=== PATIENT | female | born 1960 | race Caucasian/White ===

== ENCOUNTER → 2022-10-12 | Outpatient (CLI) | payer MEDICAID ==
--- NOTE | 2022-10-12 17:29 | P.HPBAR ---
Bariatric H&P - History & Physicial H&P Date: 10/12/22 History & Physicial: Visit/CC: Patient initial contact: Initial weight: Initial weight in pounds: Height: 5 ft Initial BMI: Last weight: Current weight: 96.615 kg Current weight in pounds: Current BMI: [place] body weight (based on NIH guidelines): Excess body weight loss: The patient is a 62 year-old F who presents for Bariatric Assessment. She is looking into vental hernia surgery with loss of domain. Stop smoking. S leeve, labs and nutrition. Bariatric Checklist Checklist: Plan: Checklist: EGD: 1. Hiatal hernia: 2. H. Pylori: HgbA1c: Vitamin D: Smoking: Primary care physician referral: Psychiatry clearance: Cardiology clearance: Sleep study: Diet journal: VTE risk score: VTE risk level: Rehab needs at discharge:
[2022-10-12 17:40] VITALS: BP 118/79; PULSE 85; RESP 16; TEMP 98.1; BMI 41.5
== END ==
LOC: BARWHC3 16:32
PROVIDERS: ATTEND Surgery Plastic and Reconstructive Surgery
DX: E66.01 Morbid (severe) obesity due to excess calories (principal); Z68.41 Body mass index [BMI] 40.0-44.9, adult
CPT/HCPCS: 99202

== ENCOUNTER → 2022-10-18 | Outpatient (CLI) | payer MEDICAID ==
[2022-10-18 10:54] LABS: INR 0.9 (<1.2); Partial Thromboplastin Time 24.5 sec (22.0-30.0); Prothrombin Time 9.7 sec (9.0-12.0)
[2022-10-19 05:23] LABS: % Iron Saturation 20.88 (12.00-45.00); ALT 19 U/L (8-44); AST 18 U/L (13-35); Albumin 4.7 d/dL (3.8-4.9); Albumin/Globulin Ratio 1.62 Ratio (1.60-3.17); Alkaline Phosphatase 66 U/L (41-126); BUN/Creat Ratio 16.83 Ratio (12.00-20.00); Blood Urea Nitrogen 10.1 mg/dL (9.0-27.0); Calcium 10.4 mg/dL (8.7-10.3); Carbon Dioxide 25.5 mmol/L (21.6-31.8); Chloride 96 mmol/L (96-109); Chol/HDL Ratio 3.44 Ratio; Globulin 2.9 d/dL (1.6-3.3); Glucose 95 mg/dL (70-110); Iron 81 UG/DL (50-170); Magnesium 2.3 mg/dL (1.5-2.4); Phosphorus 3.8 mg/dL (2.4-5.1); Potassium 4.2 mmol/L (3.5-5.5); Prealbumin 27.5 mg/dL (18.0-42.0); Sodium 135 mmol/L (135-145); Total Bilirubin 0.3 mg/dL (0.3-1.2); Total Iron Binding Capacity 388 UG/DL (228-460); Total Protein 7.6 d/dL (6.2-8.2); Vitamin B12 >3600.0 pg/mL (200.0-944.0)
[2022-10-19 05:24] LABS: LDL Cholesterol,Calculated 72.4 mg/dL (0.0-131.0)
[2022-10-19 12:51] LABS: Zinc, Serum 73 ug/dL (60-130)
[2022-10-20 05:27] LABS: Vitamin A 66 ug/dL (38-106)
[2022-10-20 08:08] LABS: Anabasine Urine 4.7 ng/mL (<2.0)
[2022-10-20 10:14] LABS: Vit B1(Thiamine) 52 ug/L (38-122)
== END | disposition home or self-care (01) ==
LOC: LABPAT 08:59
PROVIDERS: ATTEND Surgery Plastic and Reconstructive Surgery
DX: Z71.51 Drug abuse counseling and surveillance of drug abuser (principal); E66.01 Morbid (severe) obesity due to excess calories; E89.1 Postprocedural hypoinsulinemia; D50.8 Other iron deficiency anemias; K91.2 Postsurgical malabsorption, not elsewhere classified; E44.0 Moderate protein-calorie malnutrition; E44.1 Mild protein-calorie malnutrition; E45 Retarded development following protein-calorie malnutrition; E55.9 Vitamin D deficiency, unspecified; K74.1 Hepatic sclerosis; N19 Unspecified kidney failure; T56.894A Toxic effect of other metals, undetermined, initial encounter; K50.90 Crohn's disease, unspecified, without complications; R94.31 Abnormal electrocardiogram [ECG] [EKG]
CPT/HCPCS: 80053; 80061; 80323; 82306; 82525; 82607; 82728; 82746; 83036; 83540; 83550; 83735; 83970; 84100; 84134; 84255; 84425; 84443; 84590; 84630; 85027; 85610; 85730; 93005

== ENCOUNTER → 2022-11-28 | Day surgery (SDC) | payer MEDICAID ==
[2022-11-21 17:02] VITALS: BMI 41.5
[~2022-11-28] MED LIST: LACTATED RINGERS 1,000 ML IV SCH; LIDOCAINE 1% (10MG/ML) FOR IV START INTRADERMA PRN; LIDOCAINE 2% INJ 20 MG/ML (2 ML VIAL) ONE; MIDAZOLAM 2 MG/2 ML VIAL ONE; PROPOFOL 10 MG/ML 20 ML VIAL IV ONE
[2022-11-28 08:01] VITALS: TEMP 97.5
--- NOTE | 2022-11-28 08:21 | P.GSHP ---
History of Present Illness H&P Date: 11/28/22 CHIEF COMPLAINT: GERD HISTORY OF PRESENT ILLNESS: The patient is a 62-year-old female who presents reports gastroesophageal reflux disease. Upper endoscopy was offered for further evaluation and management. PAST MEDICAL HISTORY: Please see list. PAST SURGICAL HISTORY: Please see list. MEDICATIONS: Please see list. ALLERGIES: Please see list. SOCIAL HISTORY: No illicit drug use FAMILY HISTORY: No reports of Crohn disease or ulcerative colitis. REVIEW OF ORGAN SYSTEMS: CONSTITUTIONAL: No reports of fevers or chills. GI: Denies any blood in stools or constipation. PHYSICAL EXAM: VITAL SIGNS: Stable GENERAL: Well-developed and pleasant in no acute distress. HEENT: No scleral icterus. Extraocular movements grossly intact. Moist buccal mucosa. NECK: Supple without lymphadenopathy. CHEST: Unlabored respirations. Equal bilateral excursions. CARDIOVASCULAR: Regular rate and rhythm. Distal 2+ pulses. ABDOMEN: Soft, nondistended. MUSCULOSKELETAL: No clubbing, cyanosis, or edema. ASSESSMENT: 1. Gastroesophageal reflux disease PLAN: 1. Recommend proceeding with an upper endoscopy Past Medical History Past Medical History: Hyperlipidemia, Hypertension, Sleep Apnea/CPAP/BIPAP Additional Past Medical History / Comment(s): CONSTIPATION, ABD. HERNIA, History of Any Multi-Drug Resistant Organisms: None Reported Past Surgical History: Breast Surgery, Hernia Repair, Tubal Ligation Additional Past Surgical History / Comment(s): COLONOSCOPY. LT BREAST BX. UTERINE BX Past Anesthesia/Blood Transfusion Reactions: Previous Problems w/ Anesthesia Additional Past Anesthesia/Blood Transfusion Reaction / Comment(s): WOKE UP DURING TUBAL LIGATION-. HERNIA SX-ENDED UP IN ICU-1993 Smoking Status: Current every day smoker - Past Family History Father Family Medical History: Cancer Brother(s) Family Medical History: Cancer Medications and Allergies Home Medications Medication Instructions Recorded Confirmed Type Atorvastatin [Lipitor] 20 mg PO DAILY 10/12/22 11/28/22 History lisinopriL [Zestril] 20 mg PO DAILY 10/12/22 11/28/22 History Ashwagandha Root Extract 300 mg PO DAILY 11/21/22 11/28/22 History [Ashwagandha] Cholecalciferol (Vitamin D3) 2,000 unit PO DAILY 11/21/22 11/28/22 History [Vitamin D3 (50 Mcg = 2000 Iu) Chew Tab] Cyanocobalamin (Vitamin B-12) 1,000 mcg PO DAILY 11/21/22 11/28/22 History [Vitamin B-12] Multivit with Calcium,Iron,Min 1 each PO DAILY 11/21/22 11/28/22 History [Women's Multivitamin] Budesonide-Formot 160-4.5 Mcg 160 mg .ROUTE BID PRN 11/28/22 11/28/22 History [Symbicort 160-4.5 Mcg Inhaler] Allergies Allergy/AdvReac Type Severity Reaction Status Date / Time acetaminophen [From Vicodin] AdvReac Nausea & Verified 11/28/22 07:46 Vomiting hydrocodone [From Vicodin] AdvReac Nausea & Verified 11/28/22 07:46 Vomiting Surgical - Exam Vital Signs Temp Pulse Resp BP Pulse Ox 97.5 F L 75 16 167/75 96 11/28/22 07:59 11/28/22 07:59 11/28/22 07:59 11/28/22 07:59 11/28/22 07:59
[2022-11-28 08:42] VITALS: RESP 20
[2022-11-28 08:57] VITALS: BP 118/77; PULSE 67
--- NOTE | 2022-11-28 09:07 | P.PCN ---
Date of Procedure: 11/28/22 Description of Procedure: PREOPERATIVE DIAGNOSIS: Gastroesophageal reflux disease. Morbid obesity. POSTOPERATIVE DIAGNOSIS: Gastroesophageal reflux disease. Morbid obesity. Gastritis. Diaphragmatic hiatal hernia OPERATION: Esophagogastroduodenoscopy with biopsies along antrum and duodenum SURGEON: Kimberley Ray MD ANESTHESIA: MAC. INDICATIONS: The patient is a 62-year-old female who presents with reflux disease. Benefits and risks of the procedure were described. Informed consent was obtained. DESCRIPTION: The patient was brought into the endoscopy suite and laid in the left lateral decubitus position. An Olympus gastroscope was passed along the posterior oropharynx down to the distal esophagus where the squamocolumnar junction was encountered at 36 cm from the incisors. The stomach was entered and no bile reflux was found. Additional findings are listed below. Biopsies with cold fo rceps were obtained of the antrum. The first through third portion of the duodenum was examined. Retroflexion of the scope confirmed Hill grade 2 lower esophageal valve. The squamocolumnar junction demonstrated LA grade B erosive esophagitis. The stomach was desufflated. The patient tolerated the procedure well. FINDINGS: Squamocolumnar junction 36 cm from the incisors. Diaphragmatic hiatus at 37 cm. Hiatal hernia, 1 cm Hill grade 2 lower esophageal valve. LA grade B erosive esophagitis. Biopsies obtained of the duodenum. Chronic gastritis with biopsies obtained. RECOMMENDATIONS: Upper endoscopy as needed. Plan - Discharge Summary Discharge Rx Participant: No New Discharge Prescriptions: Continue lisinopriL [Zestril] 20 mg PO DAILY Multivit with Calcium,Iron,Min [Women's Multivitamin] 1 each PO DAILY Cyanocobalamin (Vitamin B-12) [Vitamin B-12] 1,000 mcg PO DAILY Budesonide-Formot 160-4.5 Mcg [Symbicort 160-4.5 Mcg Inhaler] 160 mg .ROUTE BID PRN PRN Reason: Dyspnea Atorvastatin [Lipitor] 20 mg PO DAILY Cholecalciferol (Vitamin D3) [Vitamin D3 (50 Mcg = 2000 Iu) Chew Tab] 2,000 unit PO DAILY Discontinued Ashwagandha Root Extract [Ashwagandha] 300 mg PO DAILY Discharge Medication List Atorvastatin [Lipitor] 20 mg PO DAILY 10/12/22 [History] lisinopriL [Zestril] 20 mg PO DAILY 10/12/22 [History] Cholecalciferol (Vitamin D3) [Vitamin D3 (50 Mcg = 2000 Iu) Chew Tab] 2,000 unit PO DAILY 11/21/22 [History] Cyanocobalamin (Vitamin B-12) [Vitamin B-12] 1,000 mcg PO DAILY 11/21/22 [History] Multivit with Calcium,Iron,Min [Women's Multivitamin] 1 each PO DAILY 11/21/22 [History] Budesonide-Formot 160-4.5 Mcg [Symbicort 160-4.5 Mcg Inhaler] 160 mg .ROUTE BID PRN 11/28/22 [History] [facility] [place] [facility] Patient Instructions/Handouts: GERD (Gastroesophageal Reflux Disease) (DC) Discharge Disposition: HOME SELF-CARE
== END | disposition home or self-care (01) ==
LOC: ORWHC2ENDO 07:32
PROVIDERS: ATTEND Surgery Plastic and Reconstructive Surgery
DX: K29.50 Unspecified chronic gastritis without bleeding (principal); K21.00 Gastro-esophageal reflux disease with esophagitis, without bleeding; E66.01 Morbid (severe) obesity due to excess calories; K44.9 Diaphragmatic hernia without obstruction or gangrene; I10 Essential (primary) hypertension; E78.5 Hyperlipidemia, unspecified; G47.33 Obstructive sleep apnea (adult) (pediatric); F17.200 Nicotine dependence, unspecified, uncomplicated; Z79.899 Other long term (current) drug therapy; Z88.6 Allergy status to analgesic agent
CPT/HCPCS: 43239; 88305; J2250; J2704; J2001

== ENCOUNTER → 2022-12-14 | Outpatient (CLI) | payer MEDICAID ==
[2022-12-14 13:08] VITALS: BP 138/81; PULSE 84; TEMP 98.1; BMI 41.3
--- NOTE | 2022-12-14 13:45 | P.BASOAP ---
Subjective Progress Note Date: 12/14/22 She comes in with very large abdominal hernia with past bowel obstruction. She has no CT of the abdomen for her abdominal pain is generalized. She has difficulty reducing her hernia. She is requiring weight loss surgery but needs CT access for feasible for bariatric surgery. SHe reports change in bowel hab its. Colonoscopy was done at [facility] before 2019 in 2018. She has loss of domain with large. She has diverticulosis. EGD reviewed. EKG reviewed and abnormal. She rerquires cardiac clearance. Objective - Vital Signs Vital signs: Vital Signs Temp 98.1 F 12/14/22 13:02 Pulse 84 12/14/22 13:02 Resp BP 138/81 12/14/22 13:02 Pulse Ox FiO2 Intake & Output 12/13/22 12/14/22 12/14/22 18:59 06:59 18:59 Weight 96.162 kg Assessment/Plan Plan: Date: 12/14/22 Initial Weight: 96.615 kg Initial BMI: 41.5 Current Weight: 96.162 kg Current BMI: 41.3 Type of Surgery: Total Volume in Band: Previous Volume: Volume Removed: Volume Added: Band Size:
== END ==
LOC: BARWHC3 12:40
PROVIDERS: ATTEND Surgery Plastic and Reconstructive Surgery
DX: Z53.9 Procedure and treatment not carried out, unspecified reason (principal)
CPT/HCPCS: 99211

== ENCOUNTER → 2022-12-20 | Outpatient (CLI) | payer MEDICAID ==
[2022-12-20 08:12] LABS: African American GFR (CKD) >90 (>60 ml/min/1.73 sqM); Blood Urea Nitrogen 13 mg/dL (7-17); Non-African American GFR(CKD) >90 (>60 ml/min/1.73 sqM)
--- NOTE | 2022-12-20 09:45 | CT ---
EXAMINATION TYPE: CT abdomen pelvis w con CT DLP: 3.4 mGycm, Automated exposure control for dose reduction was used. DATE OF EXAM: 12/20/2022 9:28 AM COMPARISON: None CLINICAL INDICATION:Female, 62 years old with history of K56.609 INTEST OBSTRUCTION; ABD PAIN TECHNIQUE: Standard CT of the abdomen and pelvis following the administration of 100 cc of Isovue 3 00 IV contrast material and oral contrast. Coronal and sagittal reformats were performed. FINDINGS: LOWER CHEST: Linear scarring and/or atelectasis within the left lower lobe. ABDOMEN LIVER: Couple of small cysts identified. GALLBLADDER AND BILE DUCTS: Unremarkable. PANCREAS: Unremarkable. SPLEEN: Unremarkable. ADRENAL GLANDS: Unremarkable. KIDNEYS AND URETERS: No evidence of hydronephrosis or renal calculus. The kidneys enhance symmetrical ly. Contrast is demonstrated within both collecting systems on the delayed phase. PELVIS BLADDER: Unremarkable REPRODUCTIVE: Bilateral tubal ligation clips. ABDOMEN & PELVIS STOMACH AND BOWEL: Stomach and duodenum are unremarkable. Distal colonic diverticulosis without evide nce for acute diverticulitis. Enteric contrast reaches the descending colon. No evidence of bowel obs truction. PERITONEUM: No evidence of pneumoperitoneum or free fluid. VASCULATURE: Mild atherosclerotic calcifications are present throughout the abdominal aorta and its b ranches. No evidence of aortic aneurysm. MUSCULOSKELETAL: No acute osseous abnormalities. Mild disc degeneration changes are present throughou t the thoracolumbar spine. LYMPH NODES: No gross evidence for lymphadenopathy. SOFT TISSUE/ABDOMINAL WALL: Large periumbilical hernia containing nonobstructive small and large santo l with mesentery. Lobulated portions of the hernia. The defect measures 8.2 x 6.9 cm in TV and cc dim ensions. IMPRESSION: 1. Large periumbilical hernia containing nonobstructive small and large bowel with mesentery. No justine dence for obstruction. 2. Colonic diverticulosis without evidence for acute diverticulitis.
== END | disposition home or self-care (01) ==
LOC: RADCTMAIN 07:37
PROVIDERS: ATTEND Surgery Plastic and Reconstructive Surgery
DX: K57.30 Diverticulosis of large intestine without perforation or abscess without bleeding (principal); K42.9 Umbilical hernia without obstruction or gangrene; K56.609 Unspecified intestinal obstruction, unspecified as to partial versus complete obstruction
CPT/HCPCS: 82565; 84520; 74177; 36415; Q9967

== ENCOUNTER 2023-03-07 13:18 | Emergency (ER) | payer MEDICAID ==
[2023-03-07 14:00] VITALS: BP 131/81; PULSE 90; RESP 20; TEMP 98.6
--- NOTE | 2023-03-07 14:17 | ED ---
Abdominal Pain HPI - General Source: patient, family, RN notes reviewed Mode of arrival: ambulatory Limitations: no limitations - History of Present Illness MD Complaint: abdominal pain <Zoie Ge - Last Filed: 03/07/23 14:17> <Logan Amado - Last Filed: 03/07/23 16:28> - General Source: patient, family, RN notes reviewed <Julissa Hopper - Last Filed: 03/07/23 19:49> <Javier Guillen - Last Filed: 03/07/23 21:01> - General Chief Complaint: Abdominal Pain Stated Complaint: Abd Pain,poss Hernia Time Seen by Provider: 03/07/23 14:15 - History of Present Illness Initial Comments: This is a 62-year-old female who presents to the emergency department for abdominal pain. States that she was previously diagnosed with an umbilical hernia, and believes that this is causing her current symptoms. Denies any ass ociated nausea or vomiting. She is still having bowel movements, which was most recently yesterday. (Zoie Ge) Patient is 62-year-old female presented ER with chief complaint of abdominal pain. Patient has a past medical history significant for an umbilical hernia re paired surgically. Patient states she follows up with Dr. Stacy. Patient states on 03/03/23, she started having increasing pain where her umbilical hernia was located. Patient states her abdomen is much bigger than normal and her hernia is usually reducible. Patient states she has not been able to eat much relief lately. She states she has only been able to eat saltine crackers she endorses associated nausea and vomiting. She states she was in a lot of pain which is made worse by movement and with palpation of her hernia. Patient states she is passing gas and her last bowel movement was last night but it was diarrhea. Patient denies any fevers. She does admit to night sweats. (Julissa Hopper) - Related Data Home Medications Medication Instructions Recorded Confirmed Atorvastatin [Lipitor] 20 mg PO DAILY 10/12/22 12/14/22 lisinopriL [Zestril] 20 mg PO DAILY 10/12/22 12/14/22 Cholecalciferol (Vitamin D3) 2,000 unit PO DAILY 11/21/22 12/14/22 [Vitamin D3 (50 Mcg = 2000 Iu) Chew Tab] Multivit with Calcium,Iron,Min 1 each PO DAILY 11/21/22 12/14/22 [Women's Multivitamin] Budesonide-Formot 160-4.5 Mcg 160 mg .ROUTE BID PRN 11/28/22 12/14/22 [Symbicort 160-4.5 Mcg Inhaler] Allergies Allergy/AdvReac Type Severity Reaction Status Date / Time acetaminophen [From Vicodin] AdvReac Nausea & Verified 11/28/22 07:46 Vomiting hydrocodone [From Vicodin] AdvReac Nausea & Verified 11/28/22 07:46 Vomiting Review of Systems ROS Other: All systems not noted in ROS Statement are negative. <Zoie Ge - Last Filed: 03/07/23 14:17> ROS Other: All systems not noted in ROS Statement are negative. <Logan Amado - Last Filed: 03/07/23 16:28> ROS Other: All systems not noted in ROS Statement are negative. <Julissa Hopper - Last Filed: 03/07/23 19:49> ROS Other: All systems not noted in ROS Statement are negative. <Javier Guillen - Last Filed: 03/07/23 21:01> ROS Statement: Those systems with pertinent positive or pertinent negative responses have been documented in the HPI. Past Medical History Past Medical History: Hyperlipidemia, Hypertension, Sleep Apnea/CPAP/BIPAP Additional Past Medical History / Comment(s): CONSTIPATION, ABD. HERNIA, History of Any Multi-Drug Resistant Organisms: None Reported Past Surgical History: Breast Surgery, Hernia Repair, Tubal Ligation Additional Past Surgical History / Comment(s): COLONOSCOPY. LT BREAST BX. UTERINE BX Past Anesthesia/Blood Transfusion Reactions: Previous Problems w/ Anesthesia Additional Past Anesthesia/Blood Transfusion Reaction / Comment(s): WOKE UP DURING TUBAL LIGATION-. HERNIA SX-ENDED UP IN ICU-1993 Past Psychological History: No Psychological Hx Reported Smoking Status: Current every day smoker Past Alcohol Use History: None Reported Past Drug Use History: Marijuana - Past Family History Father Family Medical History: Cancer Brother(s) Family Medical History: Cancer <Zoie Ge - Last Filed: 03/07/23 14:17> General Exam Limitations: no limitations <Zoie Ge - Last Filed: 03/07/23 14:17> General appearance: alert, in no apparent distress Respiratory exam: Present: normal lung sounds bilaterally. Absent: respiratory distress, wheezes, rales, rhonchi, stridor Cardiovascular Exam: Present: regular rate, normal rhythm, normal heart sounds. Absent: systolic murmur, diastolic murmur, rubs, gallop, clicks GI/Abdominal exam: Present: soft, distended, tenderness, normal bowel sounds, hernia (Noted mid abdomen. Surgical scar noted.) <Julissa Hopper - Last Filed: 03/07/23 19:49> - General Exam Comments Initial Comments: Visual Physical Exam Vital signs reviewed General: Well-appearing, nontoxic, no acute distress. Head: Normocephalic, atraumatic Eyes: PERRLA, EOMI ENT: Airway patent Chest: Nonlabored breathing Skin: No visual rash, normal skin tone Neuro: Alert and oriented 3 Musculoskeletal: No gross abnormalities I performed the QuickNote portion of this chart. Signed Zoie Ge PA-C. (Zoie Ge) Course Vital Signs 03/07/23 13:44 Temperature 98.6 F Pulse Rate 90 Respiratory 20 Rate Blood Pressure 131/81 O2 Sat by Pulse 98 Oximetry Medical Decision Making - Lab Data Result diagrams: 03/07/23 15:05 03/07/23 15:05 <Logan Amado - Last Filed: 03/07/23 16:28> - Lab Data Result diagrams: 03/07/23 15:05 03/07/23 15:05 <Julissa Hopper - Last Filed: 03/07/23 19:49> - Lab Data Result diagrams: 03/07/23 15:05 03/07/23 15:05 <Javier Guillen - Last Filed: 03/07/23 21:01> - Medical Decision Making Was pt. sent in by a medical professional or institution ([facility]ADELINE Tadeo, OIL DRILLING ENGINEER, urgent care, hospital, or [facility]...) When possible be specific @ -[No] Did you speak to anyone other than the patient for history (EMS, parent, family, police, friend...)? What history was obtained from this source @ -[No] Did you review nursing and triage notes (agree or disagree)? Why? @ -[I reviewed and agree with nursing and triage notes] Were old charts reviewed (outside hosp., previous admission, EMS record, old EKG, old radiological studies, urgent care reports/EKG's, [facility] records)? Report findings @ -[No old charts were reviewed] Differential Diagnosis (chest pain, altered mental status, abdominal pain women, abdominal pain men, vaginal bleeding, weakness, fever, dyspnea, syncope, headach e, dizziness, GI bleed, back pain, seizure, CVA, palpatations, mental health, musculoskeletal)? @ -[Differential Abdominal Pain Women: Appendicitis, Cholecystitis, diverticulosis, ischemic bowel, pancreatitis, hepatitis, UTI, gastroenteritis, AAA, incarcerated hernia, bowel obstruction, constipation, inflammatory bowel, hepatitis, peptic ulcer disease, splenic infarction, perforated viscus, vulvitis, ovarian torsion, PID, kidney stone, placenta abruption, this is not meant to be an all-inclusive list EKG interpreted by me (3pts min.). @ -[None] X-rays interpreted by me (1pt min.). @ -[None done] CT interpreted by me (1pt min.). @ -[CT abdomen and pelvis showed a large periumbilical hernia containing small and large bowel no evidence of obstruction. U/S interpreted by me (1pt. min.). @ -[None done] What testing was considered but not performed or refused? (CT, X-rays, U/S, labs)? Why? @ -[None] What meds were considered but not given or refused? Why? @ -[None] Did you discuss the management of the patient with other professionals (professionals i.e. , PA, OIL DRILLING ENGINEER, lab, RT, psych nurse, social security assessor, stevedore dock, teacher, duty officer, wrapper caser)? Give summary @ -[No] Was smoking cessation discussed for >3mins.? @ -[No] Was critical care preformed (if so, how long)? @ -[No] Were there social determinants of health that impacted care today? How? (Homelessness, low income, unemployed, alcoholism, drug addiction, transportation, low edu. Level, literacy, decrease access to med. care, fdc, rehab)? @ -[No] Was there de-escalation of care discussed even if they declined (Discuss DNR or withdrawal of care, Hospice)? DNR status @ -[No] What co-morbidities impacted this encounter? (DM, HTN, Smoking, COPD, CAD, Cancer, CVA, ARF, Chemo, Hep., AIDS, mental health diagnosis, sleep apnea, morbid obesity)? @ -[None] Was patient admitted / discharged? Hospital course, mention meds given and route, prescriptions, significant lab abnormalities, going to OR and other pertinent info. @ -[I signed this patient over to Dr. Guillen for further care.] (Julissa Hopper) CT report reviewed. Patient was to have pain medication and reevaluation of abdomen and reduction of abdominal umbilical hernia if needed. Patient refused to wait further and left (Javier Guillen) - Lab Data Lab Results 03/07/23 03/07/23 03/07/23 Range/Units 15:05 15:05 15:05 WBC 10.8 H (3.8-10.6) k/uL RBC 5.04 (3.80-5.40) m/uL Hgb 15.3 (11.4-16.0) gm/dL Hct 45.1 (34.0-46.0) % MCV 89.4 (80.0-100.0) fL MCH 30.4 (25.0-35.0) pg MCHC 33.9 (31.0-37.0) g/dL RDW 12.3 (11.5-15.5) % Plt Count 322 (150-450) k/uL MPV 7.1 Neutrophils % 59 % Lymphocytes % 29 % Monocytes % 8 % Eosinophils % 1 % Basophils % 0 % Neutrophils # 6.3 (1.3-7.7) k/uL Lymphocytes # 3.1 (1.0-4.8) k/uL Monocytes # 0.9 (0-1.0) k/uL Eosinophils # 0.1 (0-0.7) k/uL Basophils # 0.1 (0-0.2) k/uL Sodium 129 L (137-145) mmol/L Potassium 4.0 (3.5-5.1) mmol/L Chloride 92 L (98-107) mmol/L Carbon Dioxide 26 (22-30) mmol/L Anion Gap 11 mmol/L BUN 9 (7-17) mg/dL Creatinine 0.55 (0.52-1.04) mg/dL Est GFR (CKD-EPI)AfAm >90 (>60 ml/min/1.73 sqM) Est GFR (CKD-EPI)NonAf >90 (>60 ml/min/1.73 sqM) Glucose 98 (74-99) mg/dL Plasma Lactic Acid Alex 0.9 (0.7-2.0) mmol/L Calcium 10.1 (8.4-10.2) mg/dL Total Bilirubin 0.6 (0.2-1.3) mg/dL AST 17 (14-36) U/L ALT 15 (4-34) U/L Alkaline Phosphatase 65 (38-126) U/L Total Protein 7.7 (6.3-8.2) g/dL Albumin 4.6 (3.5-5.0) g/dL Urine Color Urine Appearance (Clear) Urine pH (5.0-8.0) Ur Specific [place] (1.001-1.035) Urine Protein (Negative) Urine Glucose (UA) (Negative) Urine Ketones (Negative) Urine Blood (Negative) Urine Nitrite (Negative) Urine Bilirubin (Negative) Urine Urobilinogen (<2.0) mg/dL Ur Leukocyte Esterase (Negative) 03/07/23 03/07/23 Range/Units 17:13 18:07 WBC (3.8-10.6) k/uL RBC (3.80-5.40) m/uL Hgb (11.4-16.0) gm/dL Hct (34.0-46.0) % MCV (80.0-100.0) fL MCH (25.0-35.0) pg MCHC (31.0-37.0) g/dL RDW (11.5-15.5) % Plt Count (150-450) k/uL MPV Neutrophils % % Lymphocytes % % Monocytes % % Eosinophils % % Basophils % % Neutrophils # (1.3-7.7) k/uL Lymphocytes # (1.0-4.8) k/uL Monocytes # (0-1.0) k/uL Eosinophils # (0-0.7) k/uL Basophils # (0-0.2) k/uL Sodium (137-145) mmol/L Potassium (3.5-5.1) mmol/L Chloride (98-107) mmol/L Carbon Dioxide (22-30) mmol/L Anion Gap mmol/L BUN (7-17) mg/dL Creatinine (0.52-1.04) mg/dL Est GFR (CKD-EPI)AfAm (>60 ml/min/1.73 sqM) Est GFR (CKD-EPI)NonAf (>60 ml/min/1.73 sqM) Glucose (74-99) mg/dL Plasma Lactic Acid Alex 0.7 (0.7-2.0) mmol/L Calcium (8.4-10.2) mg/dL Total Bilirubin (0.2-1.3) mg/dL AST (14-36) U/L ALT (4-34) U/L Alkaline Phosphatase (38-126) U/L Total Protein (6.3-8.2) g/dL Albumin (3.5-5.0) g/dL Urine Color Yellow Urine Appearance Clear (Clear) Urine pH 5.5 (5.0-8.0) Ur Specific [place] 1.024 (1.001-1.035) Urine Protein Trace H (Negative) Urine Glucose (UA) Negative (Negative) Urine Ketones 1+ H (Negative) Urine Blood Negative (Negative) Urine Nitrite Negative (Negative) Urine Bilirubin Negative (Negative) Urine Urobilinogen <2.0 (<2.0) mg/dL Ur Leukocyte Esterase Negative (Negative) Disposition <Zoie Ge - Last Filed: 03/07/23 14:17> <Logan Amado - Last Filed: 03/07/23 16:28> <Julissa Hopper - Last Filed: 03/07/23 19:49> Is patient prescribed a controlled substance at d/c from ED?: No Time of Disposition: 21:01 <Javier Guillen - Last Filed: 03/07/23 21:01> Clinical Impression: Abdominal pain Disposition: LEFT AGAINST MEDICAL ADVICE Instructions (If sedation given, give patient instructions): Abdominal Pain (ED) Referrals: Db Finley MD [Primary Care Provider] - 1-2 days
[2023-03-07 15:40] LABS: Basophils # (A) 0.1 k/uL (0-0.2); Basophils % (A) 0 %; Eosinophils # (A) 0.1 k/uL (0-0.7); Eosinophils % (A) 1 %; HCT 45.1 % (34.0-46.0); HGB 15.3 gm/dL (11.4-16.0); Lymphocytes # (A) 3.1 k/uL (1.0-4.8); Lymphocytes % (A) 29 %; MCH 30.4 pg (25.0-35.0); MCHC 33.9 g/dL (31.0-37.0); MCV 89.4 fL (80.0-100.0); Mean Platelet Volume 7.1; Monocytes # (A) 0.9 k/uL (0-1.0); Monocytes % (A) 8 %; Neutrophils # (A) 6.3 k/uL (1.3-7.7); Neutrophils % (A) 59 %; Platelet Count 322 k/uL (150-450); RBC 5.04 m/uL (3.80-5.40); RDW 12.3 % (11.5-15.5); WBC 10.8 k/uL (3.8-10.6)
[2023-03-07 15:52] LABS: ALT 15 U/L (4-34); AST 17 U/L (14-36); African American GFR (CKD) >90 (>60 ml/min/1.73 sqM); Albumin 4.6 g/dL (3.5-5.0); Alkaline Phosphatase 65 U/L (38-126); Anion Gap 11 mmol/L; Blood Urea Nitrogen 9 mg/dL (7-17); Calcium 10.1 mg/dL (8.4-10.2); Carbon Dioxide 26 mmol/L (22-30); Chloride 92 mmol/L (98-107); Glucose 98 mg/dL (74-99); Non-African American GFR(CKD) >90 (>60 ml/min/1.73 sqM); Sodium 129 mmol/L (137-145); Total Bilirubin 0.6 mg/dL (0.2-1.3); Total Protein 7.7 g/dL (6.3-8.2)
[2023-03-07] MEDS ORDERED: SODIUM CHLORIDE 0.9% 1,000 ML IV STA (16:27)
[2023-03-07 17:43] LABS: Appearance,Urine Clear (Clear); Bilirubin,Urine Negative (Negative); Blood,Urine Negative (Negative); Color,Urine Yellow; Glucose,Urine (UA) Negative (Negative); Ketones,Urine 1+ (Negative); Leukocyte Esterase,Urine Negative (Negative); Nitrite,Urine Negative (Negative); PH, Urine 5.5 (5.0-8.0); Protein,Urine Trace (Negative); Specific Gravity,Urine 1.024 (1.001-1.035); Urobilinogen,Urine <2.0 mg/dL (<2.0)
--- NOTE | 2023-03-07 19:16 | CT ---
EXAMINATION TYPE: CT abdomen pelvis wo con CT DLP: 935.2 mGycm, Automated exposure control for dose reduction was used. DATE OF EXAM: 03/07/2023 6:42 PM COMPARISON: CT abdomen pelvis most recent from 12/20/2022 CLINICAL INDICATION:Female, 62 years old with history of abdominal pain; abdominal pain, possible her amos TECHNIQUE: Axial CT of the ;CT abdomen pelvis wo con;Sagittal and coronal reformats were created on a separate workstation. Contrast used: (none if empty) Oral contrast used: without Oral Contrast (none if empty) FINDINGS: LOWER CHEST: Linear scarring and/or atelectasis within the left lower lobe. ABDOMEN LIVER: Scattered probable hepatic cyst. GALLBLADDER AND BILE DUCTS: Unremarkable. PANCREAS: Unremarkable. SPLEEN: Unremarkable. ADRENAL GLANDS: Unremarkable. KIDNEYS AND URETERS: No evidence of hydronephrosis or renal calculus. The kidneys enhance symmetrical ly. Contrast is demonstrated within both collecting systems on the delayed phase. PELVIS BLADDER: Unremarkable REPRODUCTIVE: Bilateral tubal ligation clips. ABDOMEN & PELVIS STOMACH AND BOWEL: Stomach and duodenum are unremarkable. Distal colonic diverticulosis without evide nce for acute diverticulitis. Enteric contrast reaches the descending colon. No evidence of bowel obs truction. PERITONEUM: No evidence of pneumoperitoneum or free fluid. VASCULATURE: Mild atherosclerotic calcifications are present throughout the abdominal aorta and its b ranches. No evidence of aortic aneurysm. MUSCULOSKELETAL: No acute osseous abnormalities. Mild disc degeneration changes are present throughou t the thoracolumbar spine. LYMPH NODES: No gross evidence for lymphadenopathy. SOFT TISSUE/ABDOMINAL WALL: Large periumbilical hernia containing nonobstructive small and large santo l with mesentery. Lobulated portions of the hernia. The defect measures 8.5 x 6.9 cm in TV and cc dim ensions. IMPRESSION: 1. No change from prior with large periumbilical hernia containing small and large bowel. No evidence for obstruction. 2. Colonic diverticulosis.
[2023-03-07] MEDS ORDERED: HYDROmorphone 1 MG/ML 1 ML SYRINGE IVP STA (19:39)
[2023-03-07] MEDS ORDERED: HYDROmorphone 1 MG/ML 1 ML SYRINGE IM STA (19:42)
== END 2023-03-07 21:06 | disposition left against medical advice (07) ==
LOC: EC 13:18
DX: K57.30 Diverticulosis of large intestine without perforation or abscess without bleeding (principal); I10 Essential (primary) hypertension; G47.30 Sleep apnea, unspecified; E78.5 Hyperlipidemia, unspecified; F12.90 Cannabis use, unspecified, uncomplicated; F17.200 Nicotine dependence, unspecified, uncomplicated; Z79.51 Long term (current) use of inhaled steroids; Z79.899 Other long term (current) drug therapy; Z88.5 Allergy status to narcotic agent; Z88.8 Allergy status to other drugs, medicaments and biological substances; Z53.29 Procedure and treatment not carried out because of patient's decision for other reasons
CPT/HCPCS: 36415; 74176; 80053; 81003; 83605; 85025; 96360; 99284

== ENCOUNTER → 2023-04-19 | Outpatient (CLI) | payer MEDICAID ==
[2023-04-19 14:08] VITALS: BP 148/93; PULSE 76; TEMP 97.9; BMI 41.8
--- NOTE | 2023-04-19 14:18 | P.BASOAP ---
Subjective Progress Note Date: 04/19/23 DATE OF SERVICE: 04/19/23 CHIEF COMPLAINT: Morbid obesity due to excess calories HISTORY OF PRESENT ILLNESS: Kayley Chapa is a 62-year-old female who comes with lifelong morbid obesity. She comes in with recurrent ventral hernia with complications. She was recently in the emergency room due to abdominal pain and her hernias. She is undergoing medical supervised weight loss. She gained weight 20 pounds and reports pulling sensation of the abdomen. She reports worsening symptoms. At height of 5 feet 0 inches, her ideal body weight is 127 pounds. She comes in 214 pounds. Her body mass index is 41.3. She is 87 pounds overweight. PAST MEDICAL HISTORY: 1. Morbid obesity due to excess calories 2. Body mass index of 41.3 3. Hypertensive heart disease 4. Hyperlipidemia 5. Chronic obstructive pulmonary disease due to asthma 6. Gastroesophageal reflux disease 7. Diabetes type 2, [id number] 8. Obstructive sleep apnea PAST SURGICAL HISTORY: 1. Breast surgery 2. Ventral hernia repair with recurrent 3. Tubal ligation 4. Colonoscopy 5. Uterine biopsy HOME MEDICATIONS: Home Medications Medication Instructions Recorded Confirmed Atorvastatin [Lipitor] 10 mg PO DAILY 10/12/22 04/19/23 lisinopriL [Zestril] 20 mg PO DAILY 10/12/22 04/19/23 Cholecalciferol (Vitamin D3) 2,000 unit PO DAILY 11/21/22 04/19/23 [Vitamin D3 (50 Mcg = 2000 Iu) Chew Tab] Multivit with Calcium,Iron,Min 1 each PO DAILY 11/21/22 04/19/23 [Women's Multivitamin] Budesonide-Formot 160-4.5 Mcg 160 mg .ROUTE BID PRN 11/28/22 04/19/23 [Symbicort 160-4.5 Mcg Inhaler] Albuterol Inhaler [Ventolin Hfa 1 - 2 puff INHALATION Q6H PRN 04/19/23 04/19/23 Inhaler] Famotidine [Pepcid] 20 mg PO BID 04/19/23 04/19/23 metFORMIN HCL [Glucophage] 500 mg PO DAILY 04/19/23 04/19/23 ALLERGIES: Allergies Allergy/AdvReac Type Severity Reaction Status Date / Time acetaminophen [From Vicodin] AdvReac Nausea & Verified 11/28/22 07:46 Vomiting hydrocodone [From Vicodin] AdvReac Nausea & Verified 11/28/22 07:46 Vomiting SOCIAL HISTORY: Past tobacco use. Vapes. FAMILY HISTORY: No family history of ulcerative colitis disease or Crohn's disease. Family history of morbid obesity. No lupus in the family. No reports of stomach or esophageal cancer. REVIEW OF ORGAN SYSTEMS: CONSTITUTIONAL: At height of 5 feet 0 inches, her ideal body weight is 127 pounds. She comes in 214 pounds. Her body mass index is 41.3. She is 87 pounds overweight. HEENT: Denies any active troubles with vision or hearing. ENDOCRINE: Denies diabetes. No hypothyroidism. CARDIOVASCULAR: Past reports of palpitations or heart attacks or chest pain. Has hypertensive heart disease. RESPIRATORY: Has daytime somnolence. Has asthma. Has chronic obstructive pulmonary disease. GASTROINTESTINAL: Denies any bright red blood per rectum. No diarrhea. No constipation. Has gastroesophageal reflux disease. GENITOURINARY: Denies bladder urgency. No recent blood in urine MUSCULOSKELETAL: Has lower back pain and joint pain. Has osteoarthritis of the knees. NEURO: No headaches. No seizure disorders. Has neuropathy. PSYCH: Denies depression. No suicidal ideation. RHEUMATOLOGIC: No lupus. No rheumatoid arthritis. HEMATOLOGIC: Denies any abnormal bleeding or bruising. SKIN: No rash. No skin cancer. PHYSICAL EXAM: VITAL SIGNS: Height 5 foot 3.75 inches, weight 219 pounds. BMI 38.0 GENERAL: Well-developed in no acute distress. HEENT: No scleral icterus. Extraocular movements grossly intact. Hears conversational speech. No nasal drainage. NECK: Supple without lymphadenopathy. CHEST: Nonlabored respirations with equal bilateral excursions. CARDIOVASCULAR: Regular rate and regular rhythm. Distal 2+ pulses. ABDOMEN: Obese, soft. Large ventral hernia. MUSCULOSKELETAL: No clubbing, cyanosis. Gross strength 5/5 distal lower extremities. NEURO: No focal or lateralizing signs. Cranial nerves 2 through 12 grossly within normal limits. PSYCH: Appropriate affect. Alert and oriented to person, place and time. SKIN: Good skin turgor. Well perfused. LABS: Reviewed. Sodium low 129. STUDIES: CT of the abdomen and pelvis independently reviewed demonstrates bowel containing incisional ventral hernia. No bowel obstruction identified. This is my independent interpretation. REPORTS: Records emergency room reviewed ASSESSMENT: 1. Morbid obesity due to excess calories 2. Body mass index of 41.3 3. Hypertensive heart disease 4. Hyperlipidemia 5. Chronic obstructive pulmonary disease due to asthma 6. Gastroesophageal reflux disease 7. Diabetes type 2, [id number] 8. Obstructive sleep apnea 9. Hyponatremia. 10. Large incarcerated ventral hernia with loss of domain PLAN: 1. Recommend nutriition class. 2. Urine nicotine testing described. 3. Weight loss described with medical supervised weight loss. 4. Recommend abdominal binder Objective - Vital Signs Vital signs: Vital Signs Temp 97.9 F 04/19/23 13:45 Pulse 76 04/19/23 13:45 Resp BP 148/93 04/19/23 13:45 Pulse Ox FiO2 Intake & Output 04/18/23 04/19/23 04/19/23 18:59 06:59 18:59 Weight 97.069 kg Assessment/Plan Plan: Date: 04/19/23 Initial Weight: 96.615 kg Initial BMI: 41.5 Current Weight: 97.069 kg Current BMI: 41.8 Type of Surgery: Total Volume in Band: Previous Volume: Volume Removed: Volume Added: Band Size:
== END ==
LOC: BARWHC3 13:33
PROVIDERS: ATTEND Surgery Plastic and Reconstructive Surgery
DX: E66.01 Morbid (severe) obesity due to excess calories (principal); E78.5 Hyperlipidemia, unspecified; I11.9 Hypertensive heart disease without heart failure; K21.9 Gastro-esophageal reflux disease without esophagitis; G47.33 Obstructive sleep apnea (adult) (pediatric); E11.9 Type 2 diabetes mellitus without complications; J44.89 Other specified chronic obstructive pulmonary disease; E87.1 Hypo-osmolality and hyponatremia; F12.90 Cannabis use, unspecified, uncomplicated; F17.290 Nicotine dependence, other tobacco product, uncomplicated; K43.0 Incisional hernia with obstruction, without gangrene; Z68.41 Body mass index [BMI] 40.0-44.9, adult; Z88.1 Allergy status to other antibiotic agents; Z88.5 Allergy status to narcotic agent; Z79.899 Other long term (current) drug therapy; Z79.84 Long term (current) use of oral hypoglycemic drugs
CPT/HCPCS: 99211